=== PATIENT | female | born 2000 | race Caucasian/White ===

== ENCOUNTER → 2019-07-09 10:28 | Outpatient (BNVA) | payer SELFPAY | PROVIDERS: PCP Family Medicine; Visit Provider Nurse Practitioner | DX: J02.9 Acute pharyngitis, unspecified (principal) | CPT/HCPCS: 87081; 87880 ==

== ENCOUNTER → 2019-11-21 12:58 | Outpatient (BNVA) | payer SELFPAY | PROVIDERS: PCP Family Medicine; Visit Provider Specialist | DX: G43.019 Migraine without aura, intractable, without status migrainosus (principal) | CPT/HCPCS: 99213 ==